=== PATIENT | female | born 1950 | race American Indian/Alaskan Native ===

== ENCOUNTER 2020-10-28 06:46 | Day surgery (SDC) | payer OTHER ==
[~2020-10-28] VITALS: Ht 160 cm; Wt 87.6 kg
[~2020-10-28 06:46] MED LIST: ASCO500 PO; ASPI81CH PO; ATOR20 PO; CEPH500 PO; FISH OIL + D3 SOFTGE PO; GABA300 PO; GLUCHON PO; HYDR1TAB94; IBUP600; LOSA25 PO; METF500 PO; MULVITA PO; OXYACE5T PO; SERT100 PO; SERT50 PO; SUMA25; ZINC15 PO; [UNRECOGNIZED DRUG - OTHER] PO
--- NOTE | 2020-10-28 11:34 | NUR ---
REPORT GIVEN TO MAUREEN MORRIS
--- NOTE | 2020-10-28 12:10 | NUR ---
PT ARRIVED TO ROOM ON OWN BED, A/O X 4, PLEASANT/COOPERATIVE, DENIES PAIN, DENIES N/V, RECEIVED SPINAL ANESTHESIA, GROSS MOVEMENT AND SENSATION INTACT IN BLE. PT ORIENTED TO ROOM/CALL LIGHT, PROVIDED WITH PO INTAKE/FLUIDS. POST OP VS COMMENCED AND STABLE.
--- NOTE | 2020-10-28 14:27 | NUR ---
physical therapy working with pt; therapy call or contact centre coach is in room
[2020-10-28] MEDS ORDERED: SULTRIDS PO (15:45)
[2020-10-28] MEDS ORDERED: Percocet 5-3251 EACH PO (15:47)
--- NOTE | 2020-10-28 16:00 | NUR ---
PROVIDE PT AND SPOUSE WITH DISCHARGE INSTRUCTIONS AND PRINTED MATERIALS; PT'S TRANSFERRED PT'S BELONGINGS TO AWAITING VEHICLE, AND PT TRANSPORTED TO VEHICLE VIA WHEELCHAIR. PT PROVIDED WITH AQUACEL DRESSING X 1 PER ORDERS.
== END 2020-10-28 16:04 | disposition home or self-care (01) ==
LOC: ORSCMMR 06:46 → ORD 08:15 → ORSCMMR 08:15 → SURS 12:09 → ORSCMMR 12:09 → SURS 16:04 → ORSCMMR 16:04
PROVIDERS: Orthopaedic Surgery
PROC: 0SRC0JA Replacement of Right Knee Joint with Synthetic Substitute, Uncemented, Open Approach (ICD-10-PCS; principal; 2020-10-28 08:15)
DX: M17.11 Unilateral primary osteoarthritis, right knee (principal); I10 Essential (primary) hypertension; F17.210 Nicotine dependence, cigarettes, uncomplicated; Z79.899 Other long term (current) drug therapy; Z79.82 Long term (current) use of aspirin; Z79.84 Long term (current) use of oral hypoglycemic drugs
CPT/HCPCS: 73560-RT; 82947; 97110; 97116; 97161; 97530; A9270; C1776; J0171; J0690; J0735; J1100; J1815; J1885; J2250; J2370; J2405; J2704; J2795; J3010; J7120